=== PATIENT | female | born 1985 | race Caucasian/White ===

== ENCOUNTER 2016-07-03 19:31 | Emergency (ER) | payer BC, MEDICAID ==
[~2016-07-03] VITALS: Ht 162.6 cm; Wt 84.5 kg
[~2016-07-03 19:31] MED LIST: PREN1TAB49 PO
[2016-07-03 19:43] VITALS: Ht 162.6 cm; Wt 84.5 kg
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
== END 2016-07-04 02:22 | disposition short-term general hospital (02) ==
LOC: FTE 19:31
DX: K62.5 Hemorrhage of anus and rectum (principal); T74.21XA Adult sexual abuse, confirmed, initial encounter; K62.89 Other specified diseases of anus and rectum

== ENCOUNTER 2016-07-06 11:48 | Emergency (ER) | payer BC ==
[~2016-07-06] VITALS: Ht 165.1 cm; Wt 83.0 kg
[2016-07-06 11:53] VITALS: Ht 165.1 cm; Wt 83.0 kg
[2016-07-06 13:55] LABS: ADD UMIC NO; BASOPHILS % 0.4 % (0.0-2.0); EOSINOPHILS # 0.1 10^3/ul (0.0-0.5); EOSINOPHILS % 1.5 % (0.0-7.0); HEMATOCRIT 39.3 % (37.0-47.0); HEMOGLOBIN 13.3 g/dl (12.0-16.0); LYMPHOCYTES # 1.3 10^3/ul (0.8-2.9); LYMPHOCYTES % 28.3 % (15.0-51.0); MEAN CORPUSCULAR HEMOGLOBIN 30.7 pg (29.0-33.0); MEAN CORPUSCULAR HGB CONC 33.8 g/dl (32.0-37.0); MEAN CORPUSCULAR VOLUME 90.8 fl (82.0-101.0); MEAN PLATELET VOLUME 8.3 fl (7.4-10.4); MONOCYTE # 0.4 10^3/ul (0.3-0.9); MONOCYTES % 7.9 % (0.0-11.0); NEUTROPHIL # 2.9 10^3/ul (1.6-7.5); NEUTROPHILS % 61.9 % (39.0-77.0); PLATELET COUNT 213 10^3/UL (140-440); RED BLOOD COUNT 4.33 10^6/ul (4.20-5.40); RED CELL DISTRIBUTION WIDTH 14.8 % (11.5-14.5); UNCORRECTED WBC 4.7 10^3/ul (4.8-10.8); URINE BILIRUBIN (Dip) NEGATIVE (NEGATIVE); URINE BLOOD (Dip) NEGATIVE (NEGATIVE); URINE COLOR LT. YELLOW (YELLOW); URINE GLUCOSE (Dip) NEGATIVE (NEGATIVE); URINE KETONES (Dip) NEGATIVE (NEGATIVE); URINE LEUKOCYTE ESTERASE (Dip) NEGATIVE (NEGATIVE); URINE NITRITE (Dip) NEGATIVE (NEGATIVE); URINE TOTAL PROTEIN (Dip) NEGATIVE (NEGATIVE); URINE UROBILINOGEN (Dip) 0.2 E.U./dL (0.1-1.0); WHITE BLOOD COUNT 4.7 10^3/ul (4.8-10.8)
[2016-07-06 13:56] LABS: CONDITION 1; LH ANALYZER COMMENTS 1
[2016-07-06 14:02] LABS: ALBUMIN 4.3 g/dl (3.3-4.9)
[2016-07-06 14:05] LABS: BILIRUBIN,INDIRECT 0.5 mg/dl (0-1.1); BILIRUBIN,TOTAL 0.5 mg/dl (0.2-1.3); CREATININE 0.72 mg/dl (0.44-1.00)
[2016-07-06 14:06] LABS: ALBUMIN/GLOBULIN RATIO 1.19; CALCIUM 9.3 mg/dl (8.4-10.2); TOTAL PROTEIN 7.9 g/dl (6.1-8.1)
[2016-07-06] MEDS ORDERED: IOHEXOL 300MG/ML 150 ML BTL ONE (14:32)
[2016-07-06] MEDS ORDERED: SOD CHLORIDE 0.9% 100 ML ONE (14:32)
--- NOTE | 2016-07-06 15:01 | RADRPT ---
AMENDMENT: 07/06/2016 3:51:02 PM Sesar Bacon M.d No evidence of rectal perforation or perirectal inflammation is identified. AMENDMENT: 07/06/2016 3:12:47 PM Sesar Bacon M.d No acute fracture or dislocation is identified. PROCEDURE: CT Abdomen and Pelvis with contrast. CLINICAL INDICATION: Low back and pelvic pain TECHNIQUE: CT of the abdomen and pelvis was performed on a multi-detector scanner following the un complicated IV administration of 100 cc of Omnipaque 300. Coronal and sagittal images were reformat dominik from the axial data set. One or more of the following dose reduction techniques were used: auto mated exposure control, adjustment of the mA and/or kV according to patient size, use of iterative reconstruction technique. CTDI = 19.15 mGy. DLP = 1159.91 mGy-cm. COMPARISON: CT, 03/03/2009 FINDINGS: CT abdomen: The lung bases are clear. The heart size is normal, without pericardial effusion. Cholelithiasis i s noted, without evidence for cholecystitis. Liver, biliary tree, pancreas, spleen, adrenal glands and kidneys are unremarkable. No urolithiasis or obstructive uropathy is identified. The stomach i s grossly unremarkable. There is no abdominal aortic aneurysm or dissection. There is no retroperitoneal lymphadenopathy. The aletha hepatis region is clear. CT pelvis: No bowel obstruction, free intraperitoneal air or abscess is identified. There is no diverticulosis , diverticulitis or colitis. The appendix is well visualized and normal. Urinary bladder, uterus a nd left adnexa are grossly unremarkable. Right ovary demonstrates a 2.5 cm cyst. No pelvic mass, f ree fluid or lymphadenopathy is identified. The surrounding osseous structures are unremarkable. No osteolytic or osteoblastic lesion is detect ed. IMPRESSION: 1. Right ovary demonstrates a 2.5 cm cyst. 2. Cholelithiasis is noted, without evidence for cholecystitis. 3. No solid mass, lymphadenopathy, or focal acute inflammatory process is identified. RPTAT: EE .Sesar Bacon MD, MD Date Time Electronically viewed and signed by .Sesar Bacon MD, MD on 07/06/2016 15:51 .R/
[2016-07-06] MEDS ORDERED: morphine 4 MG/ML VIAL IV STA (15:15)
[2016-07-06] MEDS ORDERED: TRAM50TA2 PO (15:58)
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
== END 2016-07-06 16:14 | disposition home or self-care (01) ==
LOC: FTE 11:48
DX: T74.21XA Adult sexual abuse, confirmed, initial encounter (principal); R10.2 Pelvic and perineal pain; Y08.89XA Assault by other specified means, initial encounter
CPT/HCPCS: 36415; 74177; 80053; 81003; 82270; 83690; 85025; 96374; 99285; J2270; Q9967; Z7610

== ENCOUNTER 2016-07-15 18:30 | Emergency (ER) | payer BC ==
[~2016-07-15] VITALS: Wt 74.0 kg
[~2016-07-15 18:30] MED LIST changes: +TRAM50TA2 PO
[2016-07-15] MEDS ORDERED: ACETAMINOPHEN 500 MG TAB PO STA (19:25)
[2016-07-15 19:36] LABS: URINE BLOOD (Dip) POC Negative (NEGATIVE)
[2016-07-15 20:06] LABS: ALBUMIN 4.5 g/dl (3.3-4.9)
[2016-07-15 20:08] LABS: CREATININE 0.65 mg/dl (0.44-1.00)
[2016-07-15 20:09] LABS: ALBUMIN/GLOBULIN RATIO 1.21; BILIRUBIN,INDIRECT 0.3 mg/dl (0-1.1); BILIRUBIN,TOTAL 0.3 mg/dl (0.2-1.3); CALCIUM 8.8 mg/dl (8.4-10.2); TOTAL PROTEIN 8.2 g/dl (6.1-8.1)
[2016-07-15 20:12] LABS: HEMATOCRIT 38.8 % (37.0-47.0); HEMOGLOBIN 13.2 g/dl (12.0-16.0); MEAN CORPUSCULAR HEMOGLOBIN 30.3 pg (29.0-33.0); MEAN CORPUSCULAR VOLUME 89.1 fl (82.0-101.0); MEAN PLATELET VOLUME 8.7 fl (7.4-10.4); PLATELET COUNT 160 10^3/UL (140-440); RED BLOOD COUNT 4.36 10^6/ul (4.20-5.40); RED CELL DISTRIBUTION WIDTH 14.7 % (11.5-14.5); UNCORRECTED WBC 2.1 10^3/ul (4.8-10.8)
[2016-07-15 20:14] LABS: CONDITION 1; LH ANALYZER COMMENTS 1
--- NOTE | 2016-07-15 21:12 | RADRPT ---
PROCEDURE: CT abdomen and pelvis without IV contrast. CLINICAL INDICATION: Abdominal pain TECHNIQUE: CT scan of the abdomen and pelvis without contrast was performed on the [employer] volumetric [address] scanner. The patient was scanned without intravenous contrast. Coronal and sagittal refo rmatted images were obtained from the axial source images. The CTDI vol is 15.64 mGy and the DLP is 838.91 mGy-cm. COMPARISON: 07/06/2016 FINDINGS: CT abdomen: The lung bases are clear. The heart size is not enlarged and is without pericardial thickening or e ffusion. The liver is normal in size and density and is without focal mass or intrahepatic biliary dilatation . The spleen is normal in size and homogeneous in density. The stomach is grossly unremarkable. T he pancreas as visualized is normal. Multiple gallstones are again seen. No common bile duct dilat ation is seen. The adrenal glands are symmetric and normal. The kidneys are symmetrically unremarka ble as well. No renal calculus or obstructive uropathy or mass lesion is seen. The aorta is of normal in caliber. There is no retroperitoneal lymphadenopathy. The aletha hepatis region is clear. The large bowel is stool-filled. The small and large bowel and mesentery, as visu alized, are otherwise unremarkable. The normal appendix is identified. CT pelvis: The pelvic organs are normal. The pelvic sidewalls and inguinal regions are clear. No pelvic mass, lymphadenopathy, or focal fluid collection is seen. A trace amount of free fluid is seen. No acute inflammation is seen. The urinary bladder is within normal limits. The surrounding osseous structures are unremarkable. No osteolytic or osteoblastic lesion is detect ed. IMPRESSION: 1. Trace amount of free fluid in the pelvis. 2. Otherwise, no acute pathology in the abdomen and pelvis. 3. Cholelithiasis again noted. 4. Stool filled large bowel. RPTAT: HPNM Physician Ana Date Time Electronically viewed and signed by Physician Ana on 07/15/2016 21:12 /
[2016-07-15 21:59] LABS: EOSINOPHILS # 0.1 10^3/ul (0.0-0.5); LYMPHOCYTES # 0.6 10^3/ul (0.8-2.9); MONOCYTE # 0.3 10^3/ul (0.3-0.9); NEUTROPHIL # 0.9 10^3/ul (1.6-7.5)
[2016-07-15] MEDS ORDERED: IBUP-1542 PO (22:04)
[2016-07-15] MEDS ORDERED: ACET325T33 PO (22:04)
[2016-07-15 22:53] VITALS: TEMP 98.2
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
[2016-07-18 16:41] LABS: WHITE BLOOD COUNT 2.1 10^3/ul (4.8-10.8)
== END 2016-07-15 22:55 | disposition home or self-care (01) ==
LOC: FTE 18:30
DX: R50.9 Fever, unspecified (principal)
CPT/HCPCS: 36415; 74176; 80053; 81003; 83690; 85025; 87086; 99284; Z7610